=== PATIENT | male | born 1975 | race Hispanic/Latino ===

== ENCOUNTER 2020-05-22 23:17 | Emergency (ER) | payer SELFPAY ==
[2020-05-22 23:42] LABS: BASOPHILS # (AUTO) 0.1 (0.0-0.1); BASOPHILS % 0.5 % (0.0-1.0); EOSINOPHILS # (AUTO) 0.2 (0.0-0.4); EOSINOPHILS % 1.4 % (0.0-6.0); HEMATOCRIT 41.9 % (38.2-49.6); HEMOGLOBIN 12.3 g/dL (14.0-18.0); LYMPHOCYTES # (AUTO) 4.6 (1.0-3.2); LYMPHOCYTES % 42.6 % (18.0-39.1); MEAN CORPUSCULAR HEMOGLOBIN 32.2 pg (28-32); MEAN CORPUSCULAR HGB CONC 29.4 g/dL (31-35); MEAN CORPUSCULAR VOLUME 109.7 fL (81-99); MONOCYTES # (AUTO) 0.6 (0.2-0.8); MONOCYTES % 5.5 % (4.4-11.3); NEUTROPHILS # (AUTO) 5.4 (2.1-6.9); NEUTROPHILS % 49.4 % (38.7-80.0); PLATELET COUNT 137 x10e3/uL (140-360); RED BLOOD COUNT 3.82 x10e6/uL (4.3-5.7)
[2020-05-22 23:46] LABS: INR 1.11; PROTHROMBIN TIME 14.9 seconds (11.9-14.5)
[2020-05-22 23:47] LABS: PARTIAL THROMBOPLASTIN TIME 33.7 seconds (23.8-35.5)
[2020-05-22 23:56] LABS: ALBUMIN 3.9 g/dL (3.5-5.0); ALBUMIN/GLOBULIN RATIO 1.3 (0.8-2.0); ANION GAP 31.1 mmol/L (8-16); CALCIUM 9.4 mg/dL (8.4-10.2); CREATININE, SERUM 10.41 mg/dL (0.72-1.25); POTASSIUM 4.1 mmol/L (3.5-5.1)
[2020-05-23 00:03] LABS: CREATINE KINASE MB 6.2 ng/mL (0-5.0)
[2020-05-23 00:15] LABS: B-TYPE NATRIURETIC PEPTIDE2 2923.5 pg/mL (0-100)
[2020-05-23 00:29] LABS: ABG HCO3 21 mmol/L (22-26); ABG PCO2 72 mmHg (35-45); ABG PH 7.08 (7.35-7.45); ABG PO2 523 mmHg (80-105); ABG TCO2 23
[2020-05-23] MEDS ORDERED: METOPROLOL TARTRATE INJ 1 MG/ML VIAL IV ONE ×2 (00:30→01:15)
[2020-05-23] MEDS ORDERED: MIDAZOLAM HCL 2 MG/2 ML VIAL ONE ×2 (02:29→04:32)
[2020-05-23] MEDS ORDERED: ONDANSETRON HCL INJ 2MG/ML 2ML 2 MG/ML VIAL ONE (02:35)
[2020-05-23 02:59] LABS: ABG HCO3 27 mmol/L (22-26); ABG PCO2 53 mmHg (35-45); ABG PH 7.31 (7.35-7.45); ABG PO2 190 mmHg (80-105); ABG TCO2 29
[2020-05-23] MEDS ORDERED: NICARDIPINE 20MG/200ML PREMIX 200 ML IV SCH (03:30)
[2020-05-23] MEDS ORDERED: NICARDIPINE 20MG/200ML PREMIX 200 ML ONE (03:33)
[2020-05-23] MEDS ORDERED: AMLODIPINE BESY10 MG PO (03:46)
[2020-05-23] MEDS ORDERED: VELPHORO500 MG PO (03:46)
[2020-05-23] MEDS ORDERED: CARVEDILOL25 MG PEG (03:46)
[2020-05-23 03:53] LABS: AMPHETAMINES SCREEN,URINE NEGATIVE (NEGATIVE); BENZODIAZEPINES SCREEN,URINE NEGATIVE (NEGATIVE); CLARITY,URINE CLEAR (CLEAR); COLOR,URINE YELLOW (YELLOW); KETONES,URINE NEGATIVE (NEGATIVE); LEUKOCYTE ESTERASE ,URINE NEGATIVE (NEGATIVE); NITRITE,URINE NEGATIVE (NEGATIVE); PHENCYCLIDINE SCREEN,URINE NEGATIVE (NEGATIVE); PROTEIN,URINE DIPSTICK >=300 (NEGATIVE)
[2020-05-23 03:54] LABS: URINE UROBILINOGEN 0.2 mg/dL (0.2 - 1)
[2020-05-23 04:20] LABS: BACTERIA,URINE MODERATE /HPF; EPITHELIAL CELLS,URINE FEW /LPF; RBC,URINE >50 /HPF (0-5); RENAL EPITHELIAL CELLS,URINE FEW
[2020-05-23] MEDS ORDERED: VECURONIUM BROMIDE FOR INJ 20 MG VIAL IV STA (04:22)
[2020-05-23] MEDS ORDERED: MIDAZOLAM HCL 2 MG/2 ML VIAL IV STA ×2 (04:22→04:28)
[2020-05-23 04:29] VITALS: BP 174/77
[2020-05-23] MEDS ORDERED: WATER STERILE 10 ML VIAL ONE (12:53)
[2020-05-23] MEDS ORDERED: ETOMIDATE 2 MG/ML 10 ML INJ IV ONE (12:53)
[2020-05-23] MEDS ORDERED: VECURONIUM BROMIDE FOR INJ 20 MG VIAL ONE (12:53)
== END 2020-05-23 04:51 | disposition other institution (70) ==
LOC: ER 23:26
DX: I46.9 Cardiac arrest, cause unspecified (principal); G93.1 Anoxic brain damage, not elsewhere classified; I16.0 Hypertensive urgency; R73.9 Hyperglycemia, unspecified; I12.0 Hypertensive chronic kidney disease with stage 5 chronic kidney disease or end stage renal disease; N18.6 End stage renal disease; Z99.2 Dependence on renal dialysis; R94.31 Abnormal electrocardiogram [ECG] [EKG]; Z20.822 Contact with and (suspected) exposure to COVID-19
CPT/HCPCS: 31500; 36415; 36600; 70450; 71045; 80053; 80307; 81001; 82550; 82553; 82805; 83605; 83880; 84484; 85025; 85610; 85730; 87040; 93005; 94002; 99285; J2250; J2405; U0002